=== PATIENT | male | born 1975 | race Caucasian/White ===

== ENCOUNTER 2022-12-28 16:23 | Emergency (ER) | payer MEDICAID ==
[~2022-12-28] VITALS: Ht 180.3 cm; Wt 75.0 kg
[2022-12-28] MEDS ORDERED: normal saline 1000ML IV soln IVB ONE (17:00)
[2022-12-28] MEDS ORDERED: LORazepam 2 mg/ml vial IV ONE ×2 (17:05→18:25)
[2022-12-28 17:34] LABS: BASOPHILS % (AUTO) 0.6 % (0-1); EOSINOPHILS % (AUTO) 0.1 % (0-6); HEMATOCRIT 42.4 % (42.0-52.0); HEMOGLOBIN 14.6 g/dl (14.0-17.9); LYMPHOCYTES # (AUTO) 0.9 X10'3 (1.1-4.8); LYMPHOCYTES % (AUTO) 16.8 % (21-51); MEAN CORPUSCULAR HGB CONC 34.4 g/dL (33.0-36.5); MEAN PLATELET VOLUME 6.9 FL (7.4-10.4); MONOCYTES # (AUTO) 0.5 X10'3 (0-0.9); MONOCYTES % (AUTO) 8.8 % (2-12); NEUTROPHILS % (AUTO) 73.7 % (42-75); PLATELET COUNT 191 X10'3 (140-440); RED BLOOD COUNT 4.56 X10'6 (4.70-6.10); RED CELL DISTRIBUTION WIDTH 12.4 % (11.5-14.5); WHITE BLOOD COUNT 5.4 X10'3 (4.5-11.0)
[2022-12-28 17:52] LABS: ALANINE AMINOTRANSFERASE 42 U/L (12-78); ALBUMIN 4.3 G/DL (3.4-5.0); ALBUMIN/GLOBULIN RATIO 1.3 (1.1-1.5); ALKALINE PHOSPHATASE 58 IU/L (46-116); ANION GAP 14 (8-16); ASPARTATE AMINO TRANSFERASE 37 U/L (10-37); BILIRUBIN,TOTAL 1.9 MG/DL (0.1-1.0); BLOOD UREA NITROGEN 12 MG/DL (7-18); BUN/CREATININE RATIO 11.7 (10.0-20.0); CHLORIDE 100 MMOL/L (99-107); CREATININE 1.03 MG/DL (0.60-1.10); GLUCOSE 161 MG/DL (70-104); MAGNESIUM 1.8 MG/DL (1.5-2.4); POTASSIUM 3.5 MMOL/L (3.5-5.1); SODIUM 138 MMOL/L (135-145); TOTAL CARBON DIOXIDE 23.6 MMOL/L (24-32); TOTAL PROTEIN 7.6 G/DL (6.4-8.2); eGFR 77 ML/MIN
--- NOTE | 2022-12-28 18:34 | NUR ---
PT HAS GIVEN PERMISSION TO GIVEN INFORMATION REGARDING HIS VISIT TO HIS PARENTS; NATALIA JOSEPH, VIKKI JOSEPH; [phone]
[2022-12-28] MEDS ORDERED: GABA300C PO (19:04)
[2022-12-28 19:49] VITALS: BP 160/90
== END 2022-12-28 19:57 | disposition home or self-care (01) ==
LOC: ER 16:24
DX: F41.9 Anxiety disorder, unspecified (principal); F10.139 Alcohol abuse with withdrawal, unspecified; Z91.041 Radiographic dye allergy status; Z56.0 Unemployment, unspecified; Y90.9 Presence of alcohol in blood, level not specified
CPT/HCPCS: 36415; 80053; 83735; 85025; 93005; 96361; 96374; 96376; 99284; J2060; J7030

== ENCOUNTER 2023-02-02 16:41 | Emergency (ER) | payer MEDICAID ==
[~2023-02-02] VITALS: Ht 180.3 cm; Wt 80.0 kg
[~2023-02-02 16:41] MED LIST: GABA300C PO
[2023-02-02] MEDS ORDERED: LORazepam 2 mg/ml vial IV ONE (17:30)
[2023-02-02] MEDS ORDERED: normal saline 1000ML IV soln IVB ONE ×2 (17:30→18:30)
[2023-02-02 18:10] LABS: BASOPHILS # (AUTO) 0.1 X10'3 (0-0.2); BASOPHILS % (AUTO) 0.5 % (0-1); EOSINOPHILS % (AUTO) 0 % (0-6); HEMATOCRIT 43.4 % (42.0-52.0); HEMOGLOBIN 14.8 g/dl (14.0-17.9); LYMPHOCYTES # (AUTO) 1.1 X10'3 (1.1-4.8); LYMPHOCYTES % (AUTO) 8.5 % (21-51); MEAN CORPUSCULAR HEMOGLOBIN 31.8 PG (27.0-31.0); MEAN CORPUSCULAR VOLUME 93.4 FL (78-98); MEAN PLATELET VOLUME 7.3 FL (7.4-10.4); MONOCYTES # (AUTO) 0.9 X10'3 (0-0.9); MONOCYTES % (AUTO) 7.3 % (2-12); NEUTROPHILS # (AUTO) 10.6 X10'3 (1.8-7.7); NEUTROPHILS % (AUTO) 83.7 % (42-75); PLATELET COUNT 294 X10'3 (140-440); RED BLOOD COUNT 4.65 X10'6 (4.70-6.10); RED CELL DISTRIBUTION WIDTH 13.5 % (11.5-14.5); WHITE BLOOD COUNT 12.7 X10'3 (4.5-11.0)
[2023-02-02 18:17] LABS: D-DIMER < 0.19 MG/L FEU (0-0.50)
[2023-02-02 18:25] LABS: COLOR,URINE YELLOW (Yellow); GLUCOSE, URINE NEGATIVE (Neg); KETONES,URINE 15 mg/dl (Neg); LEUKOCYTE ESTERASE ,URINE NEGATIVE (Neg); NITRITES, URINE NEGATIVE (Neg); OCCULT BLOOD,URINE SMALL (Neg); PROTEIN,URINE 30 mg/dl (Neg); UROBILINOGEN,URINE 0.2 E.U/dL (0.2-1.0)
[2023-02-02 18:27] LABS: ALANINE AMINOTRANSFERASE 18 U/L (12-78); ALBUMIN 4.6 G/DL (3.4-5.0); ALBUMIN/GLOBULIN RATIO 1.4 (1.1-1.5); ALKALINE PHOSPHATASE 44 IU/L (46-116); ANION GAP 17 (8-16); ASPARTATE AMINO TRANSFERASE 24 U/L (10-37); BILIRUBIN,TOTAL 0.6 MG/DL (0.1-1.0); BLOOD UREA NITROGEN 9 MG/DL (7-18); BUN/CREATININE RATIO 8.3 (10.0-20.0); CALCIUM 9.3 MG/DL (8.5-10.1); CHLORIDE 105 MMOL/L (99-107); CREATININE 1.08 MG/DL (0.60-1.10); ETHANOL < 0.010 GM/DL (0.0-0.010); GLUCOSE 118 MG/DL (70-104); MAGNESIUM 1.5 MG/DL (1.5-2.4); POTASSIUM 3.3 MMOL/L (3.5-5.1); SODIUM 141 MMOL/L (135-145); TOTAL CARBON DIOXIDE 19.2 MMOL/L (24-32); TOTAL PROTEIN 7.9 G/DL (6.4-8.2); eGFR 73 ML/MIN
[2023-02-02] MEDS ORDERED: adenosine 3mg/ml 2ml vial IV ONE ×3 (18:30→19:00)
[2023-02-02 18:33] LABS: CLARITY,URINE SLIGHTLY CLOUDY (Clear); UA COLLECTION TYPE CLN CATCH MIDSTREAM
[2023-02-02 18:34] LABS: BACTERIA,URINE FEW /HPF (Neg); SQUAMOUS EPITHELIAL CELL,UR FEW /LPF (FEW)
[2023-02-02 18:41] LABS: URINE AMPHETAMINE SCREEN POSITIVE (Neg); URINE BARBITUATE SCREEN NEGATIVE (Neg); URINE BENZODIAZEPINES SCREEN NEGATIVE (Neg); URINE CANNABINOID SCREEN NEGATIVE (Neg); URINE COCAINE SCREEN NEGATIVE (Neg); URINE METHADONE SCREEN NEGATIVE (Neg); URINE OPIATE SCREEN NEGATIVE (Neg); URINE PHENCYCLIDINE SCREEN NEGATIVE (Neg)
--- NOTE | 2023-02-02 19:27 | NUR ---
Pt tachycardic at 150 HR. Cardioversion performed w/ 6 mg adenosine. No change noted. Adenosine 12 mg administered. HR lowered to 125. Second EKG performed. Pt in sinus Tachycardia.
[2023-02-02] MEDS ORDERED: LORazepam 1 MG tablet PO ONE ×2 (22:05→22:15)
[2023-02-02 22:57] VITALS: BP 149/100
[2023-02-02] MEDS ORDERED: GABA300C PO (23:48)
== END 2023-02-03 00:41 | disposition home or self-care (01) ==
LOC: EEVIPCON 16:42 → ER 16:42
DX: F10.930 Alcohol use, unspecified with withdrawal, uncomplicated (principal); F15.90 Other stimulant use, unspecified, uncomplicated; I47.1 Supraventricular tachycardia; F41.9 Anxiety disorder, unspecified; Z56.0 Unemployment, unspecified; Z79.899 Other long term (current) drug therapy; Z88.8 Allergy status to other drugs, medicaments and biological substances
CPT/HCPCS: 36415; 71045; 80053; 80305; 80320; 81001; 82948; 83735; 83880; 84484; 85025; 85379; 87088; 87491; 87591; 92960; 93005; 96361; 96374; 99285; J0153; J2060; J7030

== ENCOUNTER 2024-02-10 12:25 | Outpatient (CLI) | payer MEDICAID ==
[2024-02-10] MEDS ORDERED: GADOTERATE MEGLUMINE 7.5 MMOL/15 ML VIAL IV ONE (13:48)
== END 2024-02-10 23:59 | disposition home or self-care (01) ==
LOC: MRI 12:25
PROVIDERS: ATTEND Nurse Practitioner Family
DX: M50.33 Other cervical disc degeneration, cervicothoracic region (principal); M47.812 Spondylosis without myelopathy or radiculopathy, cervical region; M48.02 Spinal stenosis, cervical region; M25.78 Osteophyte, vertebrae; R22.1 Localized swelling, mass and lump, neck
CPT/HCPCS: 72156; A9575

== ENCOUNTER 2024-07-06 12:14 | Emergency (ER) | payer BC, MEDICAID ==
[~2024-07-06] VITALS: Ht 180.3 cm; Wt 67.6 kg
[2024-07-06 12:18] VITALS: BP 147/92; PULSE 117; TEMP 99.1; O2SAT 95
[2024-07-06 12:47] VITALS: RESP 18
[2024-07-06 12:51] LABS: BILIRUBIN,URINE NEGATIVE (Neg); CLARITY,URINE CLEAR (Clear); COLOR,URINE STRAW (Yellow); GLUCOSE, URINE NEGATIVE (Neg); KETONES,URINE NEGATIVE (Neg); LEUKOCYTE ESTERASE ,URINE NEGATIVE (Neg); NITRITES, URINE NEGATIVE (Neg); OCCULT BLOOD,URINE NEGATIVE (Neg); PROTEIN,URINE NEGATIVE (Neg); UROBILINOGEN,URINE 0.2 E.U/dL (0.2-1.0)
[2024-07-06 12:56] LABS: UA COLLECTION TYPE NON-SPECIFIED
[2024-07-06 13:08] LABS: URINE AMPHETAMINE SCREEN NEGATIVE (Neg); URINE BARBITUATE SCREEN POSITIVE (Neg); URINE BENZODIAZEPINES SCREEN NEGATIVE (Neg); URINE CANNABINOID SCREEN NEGATIVE (Neg); URINE COCAINE SCREEN NEGATIVE (Neg); URINE METHADONE SCREEN NEGATIVE (Neg); URINE OPIATE SCREEN NEGATIVE (Neg); URINE PHENCYCLIDINE SCREEN NEGATIVE (Neg)
[2024-07-06 13:25] LABS: BASOPHILS % (AUTO) 0.6 % (0-1); EOSINOPHILS % (AUTO) 0.1 % (0-6); HEMATOCRIT 44.3 % (42.0-52.0); HEMOGLOBIN 15.4 g/dl (14.0-17.9); LYMPHOCYTES # (AUTO) 1.6 X10'3 (1.1-4.8); LYMPHOCYTES % (AUTO) 25.6 % (21-51); MEAN CORPUSCULAR HEMOGLOBIN 33.2 PG (27.0-31.0); MEAN CORPUSCULAR HGB CONC 34.7 g/dL (33.0-36.5); MEAN CORPUSCULAR VOLUME 95.5 FL (78-98); MEAN PLATELET VOLUME 6.3 FL (7.4-10.4); MONOCYTES # (AUTO) 0.5 X10'3 (0-0.9); MONOCYTES % (AUTO) 8.4 % (2-12); NEUTROPHILS # (AUTO) 4.1 X10'3 (1.8-7.7); NEUTROPHILS % (AUTO) 65.3 % (42-75); PLATELET COUNT 268 X10'3 (140-440); RED BLOOD COUNT 4.64 X10'6 (4.70-6.10); RED CELL DISTRIBUTION WIDTH 13.6 % (11.5-14.5); WHITE BLOOD COUNT 6.3 X10'3 (4.5-11.0)
[2024-07-06] MEDS: LORazepam 1 MG tablet PO ONE (13:31)
[2024-07-06 13:51] LABS: ALBUMIN 4.3 G/DL (3.4-5.0); ANION GAP 13 (8-16); BLOOD UREA NITROGEN 10 MG/DL (7-18); BUN/CREATININE RATIO 10.4 (10.0-20.0); CALCIUM 8.5 MG/DL (8.5-10.1); CHLORIDE 100 MMOL/L (99-107); CREATININE 0.96 MG/DL (0.60-1.10); ETHANOL 346 MG/DL (<10); GLUCOSE 142 MG/DL (70-104); POTASSIUM 3.4 MMOL/L (3.5-5.1); SODIUM 136 MMOL/L (135-145); THYROID STIMULATING HORMONE 0.05 ulU/ml (0.34-4.50); TOTAL CARBON DIOXIDE 22.9 MMOL/L (24-32); eCRCL 89 ML/MIN; eGFR 83 ML/MIN
[2024-07-06] MEDS: hydrOXYzine 25 MG tablet PO PRN (14:40)
[2024-07-06] MEDS ORDERED: HYDR-3686 PO (16:15)
[2024-07-07] MEDS ORDERED: CLON-368 PO ×2 (15:31→15:33)
== END 2024-07-06 16:47 | disposition home or self-care (01) ==
LOC: ER 12:15
DX: F41.9 Anxiety disorder, unspecified (principal); F10.129 Alcohol abuse with intoxication, unspecified; Z88.8 Allergy status to other drugs, medicaments and biological substances; Z91.041 Radiographic dye allergy status; Z79.899 Other long term (current) drug therapy; Z56.0 Unemployment, unspecified; Z20.822 Contact with and (suspected) exposure to COVID-19
CPT/HCPCS: 36415; 80048; 80305; 80320; 81003; 84443; 85025; 87811; 99284; Q0177; 99283

== ENCOUNTER 2024-07-07 12:14 | Emergency (ER) | payer BC ==
[~2024-07-07] VITALS: Ht 180.3 cm; Wt 70.0 kg
[~2024-07-07 12:14] MED LIST changes: +HYDR-3686 PO
[2024-07-07 12:17] VITALS: BP 144/90; PULSE 109; RESP 16; TEMP 97.8; O2SAT 96
[2024-07-07] MEDS ORDERED: CLON-368 PO ×2 (15:31→15:33)
== END 2024-07-07 14:17 | disposition left against medical advice (07) ==
LOC: ER 12:16
DX: F41.9 Anxiety disorder, unspecified (principal); F10.129 Alcohol abuse with intoxication, unspecified; Z53.21 Procedure and treatment not carried out due to patient leaving prior to being seen by health care provider; Y90.9 Presence of alcohol in blood, level not specified

== ENCOUNTER 2024-07-07 15:05 | Emergency (ER) | payer BC ==
[~2024-07-07] VITALS: Ht 180.3 cm; Wt 70.0 kg
[2024-07-07 15:10] VITALS: BP 138/83; PULSE 101; RESP 16; TEMP 99.1; O2SAT 95
[2024-07-07] MEDS ORDERED: CLON-368 PO ×2 (15:31→15:33)
[2024-07-07] MEDS: LORazepam 1 MG tablet PO ONE (15:43)
== END 2024-07-07 15:47 | disposition home or self-care (01) ==
LOC: ER 15:05
DX: F10.129 Alcohol abuse with intoxication, unspecified (principal); F41.9 Anxiety disorder, unspecified; Z88.6 Allergy status to analgesic agent; Z91.041 Radiographic dye allergy status; Z79.899 Other long term (current) drug therapy; Y90.9 Presence of alcohol in blood, level not specified
CPT/HCPCS: 99283

== ENCOUNTER 2025-01-20 06:59 | Emergency (ER) | payer BC, MEDICAID ==
[~2025-01-20] VITALS: Ht 180.3 cm; Wt 68.8 kg
[~2025-01-20 06:59] MED LIST changes: +CLON-368 PO; -HYDR-3686 PO
[2025-01-20] MEDS: hydrOXYzine 25 MG tablet PO ONE (07:47)
[2025-01-20] MEDS: LORazepam 1 MG tablet PO ONE ×2 (07:47→09:21)
[2025-01-20 08:14] LABS: BASOPHILS % (AUTO) 0.6 % (0-1); EOSINOPHILS % (AUTO) 0.1 % (0-6); HEMATOCRIT 45.4 % (42.0-52.0); HEMOGLOBIN 15.4 g/dl (14.0-17.9); LYMPHOCYTES # (AUTO) 1.2 X10'3 (1.1-4.8); LYMPHOCYTES % (AUTO) 18.9 % (21-51); MEAN CORPUSCULAR HEMOGLOBIN 31.7 PG (27.0-31.0); MEAN CORPUSCULAR HGB CONC 33.9 g/dL (33.0-36.5); MEAN CORPUSCULAR VOLUME 93.5 FL (78-98); MEAN PLATELET VOLUME 6.7 FL (7.4-10.4); MONOCYTES # (AUTO) 0.3 X10'3 (0-0.9); MONOCYTES % (AUTO) 5.2 % (2-12); NEUTROPHILS # (AUTO) 4.6 X10'3 (1.8-7.7); NEUTROPHILS % (AUTO) 75.2 % (42-75); PLATELET COUNT 319 X10'3 (140-440); RED BLOOD COUNT 4.85 X10'6 (4.70-6.10); RED CELL DISTRIBUTION WIDTH 13.4 % (11.5-14.5); WHITE BLOOD COUNT 6.1 X10'3 (4.5-11.0)
[2025-01-20 08:29] LABS: ALBUMIN 4.1 G/DL (3.4-5.0); ANION GAP 9 (8-16); BLOOD UREA NITROGEN 6 MG/DL (7-18); BUN/CREATININE RATIO 6.7 (10.0-20.0); CALCIUM 8.9 MG/DL (8.5-10.1); CHLORIDE 104 MMOL/L (99-107); ETHANOL 23 MG/DL (<10); GLUCOSE 94 MG/DL (70-104); SODIUM 138 MMOL/L (135-145); THYROID STIMULATING HORMONE 0.49 ulU/ml (0.34-4.50); TOTAL CARBON DIOXIDE 25.1 MMOL/L (24-32); eCRCL 96 ML/MIN; eGFR 89 ML/MIN
[2025-01-20 10:38] LABS: BILIRUBIN,URINE NEGATIVE (Neg); CLARITY,URINE CLEAR (Clear); COLOR,URINE YELLOW (Yellow); GLUCOSE, URINE NEGATIVE (Neg); KETONES,URINE NEGATIVE (Neg); LEUKOCYTE ESTERASE ,URINE NEGATIVE (Neg); NITRITES, URINE NEGATIVE (Neg); OCCULT BLOOD,URINE NEGATIVE (Neg); PH,URINE 6.5 (4.8-8.0); PROTEIN,URINE NEGATIVE (Neg); UROBILINOGEN,URINE 0.2 E.U/dL (0.2-1.0)
[2025-01-20 10:40] LABS: UA COLLECTION TYPE VOIDED
[2025-01-20 10:55] LABS: URINE AMPHETAMINE SCREEN POSITIVE (Neg); URINE BARBITUATE SCREEN NEGATIVE (Neg); URINE BENZODIAZEPINES SCREEN NEGATIVE (Neg); URINE CANNABINOID SCREEN NEGATIVE (Neg); URINE COCAINE SCREEN NEGATIVE (Neg); URINE METHADONE SCREEN NEGATIVE (Neg); URINE OPIATE SCREEN NEGATIVE (Neg); URINE PHENCYCLIDINE SCREEN NEGATIVE (Neg)
[2025-01-20 12:48] VITALS: BP 168/98; PULSE 89; RESP 16; TEMP 98; O2SAT 96
== END 2025-01-20 12:50 | disposition home or self-care (01) ==
LOC: ER 07:00
DX: F41.9 Anxiety disorder, unspecified (principal); R45.851 Suicidal ideations; Z88.6 Allergy status to analgesic agent; Z88.8 Allergy status to other drugs, medicaments and biological substances; Z91.041 Radiographic dye allergy status
CPT/HCPCS: 36415; 80048; 80305; 80320; 81003; 84443; 85025; 99285; Q0177

== ENCOUNTER 2025-07-02 10:46 | Emergency (ER) | payer MEDICAID ==
[~2025-07-02] VITALS: Ht 180.3 cm; Wt 79.5 kg
[2025-07-02 10:54] VITALS: TEMP 98.5
--- NOTE | 2025-07-02 13:37 | Physician Documentation ---
History of Present Illness ~ Chief Complaint: ETOH Stated Complaint: DEHYDRATION Time Seen by MD: 11:07 Primary Medical Doctor: Fanny Source: patient Mode of Arrival: POV Exam Limitations: no limitations HPI Mr. Rainey is a 49 y/o male with PMhx significant for AUD who presents to the ED c/o anxiety. He had been sober but states that he went on a moran yesterday and now feels dehydrated. He is without c/o pain or N/V. No fever/.chills. He states that his anxiety is getting the best of him. He denies co-ingestions. No history of alcohol withdrawal seizures. Denies hallucinations. Tetanus within 5 years?: Yes Medication Reconciliation Allergies: Coded Allergies: aspirin (Unverified Allergy, Severe, "I will ", 07/02/25) Iodinated Contrast Media (Unverified Allergy, Unknown, Hives, 07/02/25) Uncoded Allergies: BABY POWDER (Allergy, Unknown, 12/28/22) CONTRAST IODINE (Allergy, Unknown, 12/28/22) hives Scheduled Gabapentin (Neurontin), 1 CAP PO Q8H Gabapentin (Neurontin), 1 CAP PO Q6H Scheduled PRN Clonazepam (Clonazepam), 1 TAB PO BID PRN for panic attack Past Medical History Past Medical History: No Pertinent History, Anxiety Past Surgical History: noncontributory Alcohol Use: Abuse Drug Use: none Lives with: Mother, Father Lives In: Home Occupation: unemployed Review of Systems All Other Systems at this time: Reviewed and Negative ROS As stated above in the HPI, otherwise all systems are reviewed and negative. Physical Exam Vital Signs: RN Vital Signs have been reviewed: Yes, Temperature: 98.5, Source: Oral, Heart Rate: 122, Respiratory Rate: 18, BP: 157/92, Pulse Oximetry: 96, Weight: 79.550 Physical Exam VITALS: Reviewed and as above. GENERAL: Alert, no apparent distress. HEENT: Normocephalic, atraumatic, PERRL, EOMI, dry mucosa, no erythema RESPIRATORY: Lungs clear, normal breath sounds, no respiratory distress. CHEST: No accessory muscle use, no retractions CV: Regular rate, rhythm, no edema, no murmur, No: JVD GI: Soft, tenderness to the lower abdomen with palpation., bowels sounds present, no rebound, guarding, or rigidity BACK: No CVA tenderness, or swelling MUSCULOSKELETAL No deformities, no edema SKIN: Warm and dry, no rash NEURO: Oriented x4, No motor or sensory deficit PSYCH: Normal mood and affect, no agitation Progress Results/Orders Results/Orders Completed Orders - LEIGH ANN BAILEY MD Lorazepam Tablet (Ativan Tablet) (07/02/25 12:05) Gabapentin Capsule (Neurontin Capsule) (07/02/25 12:05) Gabapentin Capsule (Neurontin Capsule) (07/02/25 12:05) Medications Received in ER Medications (Trade) Dose Ordered Sig/Farzana Route PRN Reason Start Time Stop Time Status Last Admin Dose Admin (Ativan tablet) 1 mg ONCE ONCE PO 07/02/25 12:05 07/02/25 12:07 DC 07/02/25 12:38 1 MG (Neurontin capsule) 300 mg ONCE ONCE PO 07/02/25 12:05 07/02/25 12:07 DC 07/02/25 12:38 300 MG Vital Signs 07/02/25 07/02/25 07/02/25 10:54 11:32 12:38 Temp 98.5 Pulse 122 Resp 18 18 B/P (MAP) 157/92 Pulse Ox 96 Medical Decision Making Differential Dx:Considerations: Intoxication - ETOH, Intoxication - other drug, Sub. Abuse -continuous, Sub. Abuse-intermittent, Dehydration, Encephalopathy, Pancreatitis, Thiamine deficiency Additional Comment While here in the ED, he remained hemodynamically normal with ABC's intact and in NAD. He is afebrile and nonoxic. Neuro exam nonfocal. Tolerating PO intake. Gave a dose of Lorazepam and he feels significantly better. He and I discussed the need for either a Residential program, SLE or intense outpatient program for AUD. He was given follow-up and return instructions. He voiced understanding and agreement with d/c instructions. Departure Disposition: HOME / SELF CARE / HOMELESS Impression: Primary Impression: Alcohol abuse Additional Impression: Alcohol dependence Condition: Improved Discharge Instructions: Alcohol Use Disorder Referrals: NO PRIMARY CARE PROVIDER (PCP) Comments Please follow up with her primary care provider. Please return to the emergency department with any worsening or recurrent symptoms or any additional concerning symptoms that we discussed here today. Education Educated: Patient Educated regarding: diagnosis, treatment Signature Scribe Signature: n/a Attestation: n/a LEIGH ANN BAILEY MD Jul 02, 2025 13:37
[2025-07-02 14:15] VITALS: BP 152/107; PULSE 97; RESP 17; O2SAT 97
== END 2025-07-02 14:03 | disposition home or self-care (01) ==
LOC: ER 10:47
DX: F10.20 Alcohol dependence, uncomplicated (principal); F41.9 Anxiety disorder, unspecified; E86.0 Dehydration; Z91.041 Radiographic dye allergy status; Z88.6 Allergy status to analgesic agent; Z79.899 Other long term (current) drug therapy; Z56.0 Unemployment, unspecified; Y90.9 Presence of alcohol in blood, level not specified
CPT/HCPCS: 99283